=== PATIENT | female | born 1940 | race Caucasian/White ===

== ENCOUNTER → 2017-07-22 | Outpatient (CLI) | payer OTHER, MEDICARE | LOC: LABMALL 10:44 | DX: R41.3 Other amnesia (principal) ==

== ENCOUNTER 2018-03-19 15:10 | Emergency (ER) | payer OTHER, MEDICARE ==
[~2018-03-19] VITALS: Ht 152.4 cm; Wt 46.3 kg
[2018-03-19] MEDS ORDERED: VALACYCLOVIR1000 MG PO (16:12)
[2018-03-19] MEDS ORDERED: TRAMADOL 50 MG50 MG PO (16:12)
[2018-03-19 17:53] VITALS: BP 124/72
== END 2018-03-19 16:00 | disposition home or self-care (01) ==
LOC: ER 15:10
DX: B02.9 Zoster without complications (principal); Z88.1 Allergy status to other antibiotic agents; Z88.2 Allergy status to sulfonamides; Z88.8 Allergy status to other drugs, medicaments and biological substances

== ENCOUNTER → 2019-07-06 | Outpatient (CLI) | payer OTHER, MEDICARE ==
[~2019-07-06] MED LIST: TRAMADOL 50 MG50 MG PO; VALACYCLOVIR1000 MG PO
== END ==
LOC: ULTRA 08:09
DX: D26.1 Other benign neoplasm of corpus uteri (principal); K80.80 Other cholelithiasis without obstruction

== ENCOUNTER → 2019-07-11 | Outpatient (CLI) | payer OTHER, MEDICARE | LOC: RAD 09:58 | DX: K59.00 Constipation, unspecified (principal); R13.10 Dysphagia, unspecified; Z88.8 Allergy status to other drugs, medicaments and biological substances; Z88.0 Allergy status to penicillin; Z88.2 Allergy status to sulfonamides ==

== ENCOUNTER → 2019-11-02 | Outpatient (CLI) | payer OTHER, MEDICARE | LOC: RAD 10:29 | DX: Z12.31 Encounter for screening mammogram for malignant neoplasm of breast (principal) ==

== ENCOUNTER → 2020-02-21 | Outpatient (CLI) | payer OTHER, MEDICARE | LOC: SJCVC 09:47 | DX: R94.31 Abnormal electrocardiogram [ECG] [EKG] (principal); I10 Essential (primary) hypertension; E78.00 Pure hypercholesterolemia, unspecified; M54.30 Sciatica, unspecified side; Z79.899 Other long term (current) drug therapy ==

== ENCOUNTER → 2020-03-08 | Outpatient (CLI) | payer OTHER, MEDICARE ==
[~2020-03-08] VITALS: Ht 152.4 cm; Wt 46.2 kg
[~2020-03-08] MED LIST changes: +AMITRIPTYLINE H10 M3 PO; +AMITRIPTYLINE H25 M3 PO; +LO-DOSE ASPIRIN81 M1 PO; +NORVASC 2.5 MG2.5 M1 PO; +ROSUVASTATIN CA10 MG PO; +TIZANIDINE HCL 22 M1 PO
[2020-03-08 13:46] VITALS: BP 147/69
--- NOTE | 2020-03-08 13:49 | NUR ---
Pain Clinic Assessment: 1. History of Osteoarthritis: BACK History of Rheumatoid Arthritis: Not Applicable 2. Height: 5 ft. 0 in. 152.4 cm. Weight: 101.8 lb. oz. 46.176 kg. Patient's BMI: 19.9 3. Vital Signs: BP: 147/69 Pulse: 80 Resp: 14 Temp: 02 Sat: 98 ECG Mon: 4. Pain Intensity: 7 5. Fall Risk: Dizziness: N Needs help standing or walking: N Fallen in the last 3 months: N Fall risk comments: 6. Patient on Blood Thinner: None 7. History of Hypertension: Y 8. Opioid Therapy greater than 6 weeks: N Opiate Contract Signed: 9. Risk Assessment Tool Provided: 10. Functional Assessment Tool: 11. Recreational Drug Use: Never Drug Type: Tobacco Use: Never Smoker Tobacco Type: Amount or Packs/day: How Many Years: Alcohol Use: Yes Frequency: Weekly Quant: 2
--- NOTE | 2020-03-25 02:56 | HPC ---
[facility] [place] [address] PAIN MANAGEMENT CONSULTATION Name: ELLYN SCHOFIELD Room #: REG [facility] SwethaArashRudyArash#: [id number] Admission: 03/08/20 Attend Phys: Jessica Baxter MD Discharge: Date of : 44 Report #: [id number] THIS REPORT FOR: cc: Joon Kenny MD, Rene P. MD Brown, N. Wayne MD ~ CC: Jessica Kenny MD DATE OF SERVICE: 03/08/2020 CHIEF COMPLAINT: Pain in the sciatic nerve with pain down the leg. HISTORY: The patient is a 79-year-old female who has been referred to the Pain Clinic because of pain, which she is experiencing. She has been experiencing pain, which is radiating down into her left leg. She has tried ibuprofen to help with the pain without significant improvement. She has a history of a Medtronic stimulator to assist with bladder incontinence and pain. She has been considering moving. She has been moving furniture in her house. Feels that this may have exacerbated her discomfort. Rates it as a 4/10. Pain has awaken her from sleep. Notes an aching discomfort. There is a burning and throbbing sensation. Pain is exacerbated when she is walking. Improves when she is resting. Pain radiates down to the level of the knee, which can be quite severe and disabling. ALLERGIES: DARVOCET, SULFA, AND BENADRYL. PAST MEDICAL HISTORY: Essential hypertension, hypercholesterolemia, urinary incontinence, sciatic nerve pain, osteopenia, seasonal allergies, interstitial cystitis, and Raynaud's syndrome. PAST SURGICAL HISTORY: Eye surgery, facelift, urethral sling. CURRENT MEDICATIONS: Aspirin 81 mg, rosuvastatin 10 mg daily, tizanidine 2 mg, amlodipine 5 mg b.i.d., and amitriptyline 10 mg. REVIEW OF SYSTEMS: Generally good health, fatigue, ringing in the ears, chronic sinus problems, numbness and tingling sensation, memory loss, and confusion. LABORATORY DATA: No new laboratory values are available at the time of interview regarding sciatic pain. PAIN CLINIC ASSESSMENT/PQRS: 1. The patient does have some complaint of back pain. She is not being treated for rheumatoid arthritis. [place] [id number] PAIN MANAGEMENT CONSULTATION Name: CHANDUELLYN P [id number] Admission: 03/08/20 Attend Phys: Jessica Baxter MD Discharge: Date of : 44 Report #: [id number] 2. Height is 5 feet 0, weight 101 pounds, and BMI is 19. 3. Vital Signs: Blood pressure 147/69, heart rate 80, respiratory rate 14, room air saturation 98%. 4. Pain intensity, 7/10, 4/10 at this juncture. 5. Fall history: The patient has not fallen in the last 3 months. 6. Blood thinner. The patient is not on a blood thinning medication. 7. Hypertension. The patient is being treated for hypertension. 8. Opioids. The patient is not on opioid regimen. 9. Risk assessment tool, low for opioid use. 10. Functional assessment tool, . 11. Recreational drugs: The patient denies. 12. Tobacco: The patient has never smoked. 13. Alcohol: The patient drinks about 2 alcoholic beverages weekly. PHYSICAL EXAMINATION: GENERAL: The patient is a well-developed, well-nourished white female. Appears her stated age. She is alert and oriented x 3. Her affect is appropriate. Speech is fluent. HEENT: Normocephalic, atraumatic. Extraocular eye muscles intact. Sclerae nonicteric. Mucous membranes are moist. NECK: Without adenopathy or JVD. HEART: Regular. ABDOMEN: Nontender. EXTREMITIES: Upper extremity muscle strength is judged to be 5-/5 for the major muscle groups in the upper extremity. Lower extremity, the patient has pain and discomfort in the lower extremities and rates it as 4-5 depending on activity. Notes that there is pain that radiates down into her left sciatic area with numbness and tingling. IMPRESSION: 1. Left sciatic nerve irritation with pain and discomfort in the L5-S1 dermatomal distribution with pain radiating down to the posterior portion of her knee on the left side. 2. Essential hypertension. 3. Hypercholesterolemia. 4. Urinary incontinence. 5. Osteopenia. 6. Seasonal allergies. 7. Interstitial cystitis. 8. Raynaud's syndrome. RECOMMENDATIONS: We discussed treatment options with the patient. Risks and benefits of an epidural steroid injection were discussed. A model was used to indicate the area of probable pathology. The patient states she understands. She has a get together scheduled today. Because of get together, she would like to return for the injection on another day. She will follow up in the near [facility] [address] [place] [address] PAIN MANAGEMENT CONSULTATION Name: ELLYN SCHOFIELD Room #: REG [facility] Robina#: [id number] Admission: 03/08/20 Attend Phys: Jessica Baxter MD Discharge: Date of : 44 Report #: [id number] future. We will then undergo an epidural steroid injection. We discussed the risks and benefits of an epidural steroid injection, which could include infection, worsening of pain, no improvement in pain, nerve damage, bleeding. We also talked about the caveat of the COVID-19 pandemic. We explained that sometimes the patients can have a lowered immunity response as a result of steroid use. She is aware. Her pain is quite problematic. She would like to proceed. We would like to thank you for letting us participate in her care. When she returns, we will then proceed with an epidural steroid injection to help control and improve her pain. <ELECTRONICALLY SIGNED> By: Jessica Baxter MD 03/25/20 [id number] Jessica Baxter MD /nt
== END ==
LOC: PAIN 06:51
PROVIDERS: ATTEND Anesthesiology Pain Medicine
DX: M54.32 Sciatica, left side (principal); I10 Essential (primary) hypertension; E78.00 Pure hypercholesterolemia, unspecified; M85.80 Other specified disorders of bone density and structure, unspecified site; R39.81 Functional urinary incontinence; J30.2 Other seasonal allergic rhinitis; N30.10 Interstitial cystitis (chronic) without hematuria; I73.00 Raynaud's syndrome without gangrene; Z88.8 Allergy status to other drugs, medicaments and biological substances; Z79.899 Other long term (current) drug therapy

== ENCOUNTER → 2020-03-13 | Outpatient (CLI) | payer OTHER, MEDICARE ==
[~2020-03-13] VITALS: Ht 152.4 cm; Wt 46.4 kg
[2020-03-13 11:08] VITALS: BP 123/82
--- NOTE | 2020-03-13 11:21 | NUR ---
Pain Clinic Assessment: 1. History of Osteoarthritis: BACK History of Rheumatoid Arthritis: Not Applicable 2. Height: 5 ft. 0 in. 152.4 cm. Weight: 102.2 lb. oz. 46.357 kg. Patient's BMI: 20.0 3. Vital Signs: BP: 123/82 Pulse: 80 Resp: 14 Temp: 02 Sat: 98 ECG Mon: 4. Pain Intensity: 7 5. Fall Risk: Dizziness: N Needs help standing or walking: N Fallen in the last 3 months: N Fall risk comments: 6. Patient on Blood Thinner: None 7. History of Hypertension: Y 8. Opioid Therapy greater than 6 weeks: N Opiate Contract Signed: 9. Risk Assessment Tool Provided: 2-LOW RISK 10. Functional Assessment Tool: 11. Recreational Drug Use: Never Drug Type: Tobacco Use: Never Smoker Tobacco Type: Amount or Packs/day: How Many Years: Alcohol Use: Yes Frequency: Quant:
--- NOTE | 2020-03-26 15:16 | HPC ---
[facility] [place] [address] PAIN MANAGEMENT CONSULTATION Name: ELLYN SCHOFIELD Room #: REG [facility]#: [id number] Admission: 03/13/20 Attend Phys: Jessica Baxter MD Discharge: Date of : 44 Report #: [id number] THIS REPORT FOR: cc: Joon Kenny MD, Rene P. MD Brown, N. Wayne MD ~ CC: Jessica Kenny DATE OF SERVICE: 03/13/2020 PRIMARY CARE PHYSICIAN: Joon Kenny MD CHIEF COMPLAINT: Here for an epidural steroid injection. HISTORY: The patient is a 79-year-old female who has been seen in the pain clinic prior. She suffers from lumbar radiculopathy. She has been experiencing pain that is radiating down the lower portion of her back and into her left leg. She has tried conservative treatment. The pain continues to be problematic. She has returned today for an epidural steroid injection. ALLERGIES: DARVOCET, SULFA, BENADRYL. PAIN CLINIC ASSESSMENT AND PQRS: 1. The patient does have some complaints of back pain. She is not being treated for rheumatoid arthritis. 2. Weight 102 pounds, BMI 20. 3. Vital signs: Blood pressure 123/82, pulse 80, respiratory rate 14, room air saturation 98%. 4. Pain intensity 7/10. 5. Fall history: The patient has not fallen in the last 3 months. 6. Blood thinner. The patient is not on a blood thinning medication. 7. Hypertension. The patient is being treated for hypertension. 8. Opioid therapy. The patient is not on opioids on a regular basis. 9. Risk assessment tool, low for opioid use. 10. Functional assessment tool . 11. Recreational drug use. The patient denies. 12. Tobacco: The patient has never smoked. 13. Alcohol. The patient denies frequent use of alcoholic beverages. PHYSICAL EXAMINATION: GENERAL: The patient is a well-developed, well-nourished white female. Appears her stated age. She is alert and oriented x 3. Her affect is appropriate. Speech is fluent. HEENT: Normocephalic, atraumatic. Extraocular eye muscles intact. Sclerae nonicteric. Mucous membranes are moist. [address] [address] PAIN MANAGEMENT CONSULTATION Name: CHANDUELLYN P Room #: REG [facility] Chaitanya#: [id number] Admission: 03/13/20 Attend Phys: Jessica Baxter MD Discharge: Date of : 44 Report #: [id number] NECK: Without adenopathy or JVD. HEART: Regular rate. ABDOMEN: Nontender. EXTREMITIES: Upper extremity muscle strength judged to be 5-/5 for the major muscle groups in the upper extremity. Lower extremity, the patient has pain and discomfort with pain in the lower extremity and rates it as a 4-5 depending on her activity. The patient has pain that radiates down into the L5-S1 dermatomal distribution in the area of the sciatic nerve on the left with numbness and tingling. IMPRESSION: 1. Lumbar radiculopathy at L5-S1 on the left side. 2. Essential hypertension. 3. Hypercholesterolemia. 4. Urinary incontinence. 5. Osteopenia. 6. Seasonal allergies. 7. Interstitial cystitis. 8. Raynaud's syndrome. 9. Medtronic stimulator for incontinence in the bladder. RECOMMENDATIONS: We discussed treatment options with the patient. Risks and benefits of an epidural steroid injection were explained. Possible complications of the procedure, which could include but are not limited to infection, worsening pain, nerve pain, nerve damage were all discussed. The patient elects to proceed. PROCEDURE NOTE: The patient was taken to the procedure area. She was then assisted in getting on the examination table. Her back was sterilely prepped with a Betadine solution at the L5-S1 area. A 0.25% bupivacaine was infiltrated. A 17-gauge Tuohy with loss of resistance technique at the L5-S1 area was then used to gain access. There was no CSF, heme or paresthesia. Total of 80 mg Depo-Medrol, 40 mg triamcinolone and 2 mL of 0.25% bupivacaine was injected. The patient tolerated the procedure well. There were no complications. She remained in the Pain Clinic for an appropriate amount of time. We would like to thank you for letting us participate in her care. We hope she continues to improve. <ELECTRONICALLY SIGNED> By: Jessica Baxter MD 03/26/20 [id number] Jessica Baxter MD /YOSELIN
== END | disposition home or self-care (01) ==
LOC: PAIN 06:46
PROVIDERS: ATTEND Anesthesiology Pain Medicine
DX: M54.16 Radiculopathy, lumbar region (principal); G89.29 Other chronic pain; Z79.899 Other long term (current) drug therapy; Z79.82 Long term (current) use of aspirin

== ENCOUNTER → 2020-05-10 | Outpatient (CLI) | payer OTHER, MEDICARE ==
[~2020-05-10] VITALS: Ht 152.4 cm; Wt 47.5 kg
[2020-05-10 08:36] VITALS: BP 115/57
--- NOTE | 2020-05-10 08:44 | NUR ---
Pain Clinic Assessment: 1. History of Osteoarthritis: BACK History of Rheumatoid Arthritis: Not Applicable 2. Height: 5 ft. 0 in. 152.4 cm. Weight: 104.8 lb. oz. 47.537 kg. Patient's BMI: 20.5 3. Vital Signs: BP: 115/57 Pulse: 77 Resp: 14 Temp: 02 Sat: 100 ECG Mon: 4. Pain Intensity: 5 5. Fall Risk: Dizziness: N Needs help standing or walking: N Fallen in the last 3 months: N Fall risk comments: 6. Patient on Blood Thinner: None 7. History of Hypertension: Y 8. Opioid Therapy greater than 6 weeks: N Opiate Contract Signed: 9. Risk Assessment Tool Provided: 2-LOW RISK 10. Functional Assessment Tool: 11. Recreational Drug Use: Never Drug Type: Tobacco Use: Never Smoker Tobacco Type: Amount or Packs/day: How Many Years: Alcohol Use: Yes Frequency: Weekly Quant: TWICE
== END ==
LOC: PAIN 07:07
PROVIDERS: ATTEND Anesthesiology Pain Medicine
DX: M54.16 Radiculopathy, lumbar region (principal); G89.29 Other chronic pain; Z98.890 Other specified postprocedural states; Z79.899 Other long term (current) drug therapy; Z88.2 Allergy status to sulfonamides; Z88.8 Allergy status to other drugs, medicaments and biological substances

== ENCOUNTER → 2020-08-02 | Outpatient (CLI) | payer OTHER, MEDICARE | LOC: LAB 08:20 | PROVIDERS: ATTEND Family Medicine | DX: Z20.828 Contact with and (suspected) exposure to other viral communicable diseases (principal) ==

== ENCOUNTER → 2020-08-27 | Outpatient (CLI) | payer OTHER, MEDICARE | LOC: LAB 07:37 | PROVIDERS: ATTEND Family Medicine | DX: Z20.828 Contact with and (suspected) exposure to other viral communicable diseases (principal) ==

== ENCOUNTER → 2020-10-15 | Outpatient (CLI) | payer OTHER, MEDICARE | LOC: SJCVCIMAG 10:21 | PROVIDERS: ATTEND Internal Medicine Cardiovascular Disease | DX: I10 Essential (primary) hypertension (principal); E78.5 Hyperlipidemia, unspecified ==

== ENCOUNTER → 2020-11-05 | Outpatient (CLI) | payer OTHER, MEDICARE | LOC: RAD 08:58 | PROVIDERS: ATTEND Family Medicine | DX: Z12.31 Encounter for screening mammogram for malignant neoplasm of breast (principal) ==

== ENCOUNTER 2020-12-23 21:03 | Emergency (ER) | payer OTHER, MEDICARE ==
[~2020-12-23] VITALS: Ht 152.4 cm; Wt 46.7 kg
[2020-12-23] MEDS ORDERED: ARICEPT10 M1 PO (21:16)
[2020-12-23 21:31] LABS: URINE BILIRUBIN NEGATIVE (Negative); URINE BLOOD NEGATIVE (Negative); URINE CLARITY CLEAR; URINE COLOR YELLOW; URINE GLUCOSE-RANDOM* NEGATIVE (Negative); URINE KETONES NEGATIVE (Negative); URINE LEUKOCYTES-REFLEX NEGATIVE (Negative); URINE NITRITE-REFLEX NEGATIVE (Negative); URINE PROTEIN (DIPSTICK) NEGATIVE (Negative); URINE UROBILINOGEN 0.2 E.U./dl (0.2-1.0)
[2020-12-23 21:59] LABS: HEMATOCRIT 39.2 % (37.0-47.0); HEMOGLOBIN 13.1 gm/dL (12.0-15.0); MCHC 33.4 g/dL (28.0-37.0); MCV 92.8 fL (80.0-100.0); RBC 4.22 mil/uL (4.20-5.00); RDW 12.6 % (10.5-14.5)
[2020-12-23 22:07] LABS: CALCIUM 9.1 mg/dL (8.5-10.1); CREATININE 0.5 mg/dL (0.6-1.0); POTASSIUM 3.3 mmol/L (3.5-5.1)
[2020-12-23 23:22] VITALS: BP 159/65
== END 2020-12-23 23:23 | disposition home or self-care (01) ==
LOC: ER 21:03
PROVIDERS: Nurse Practitioner Family
DX: K59.00 Constipation, unspecified (principal); Z79.82 Long term (current) use of aspirin; Z79.899 Other long term (current) drug therapy; Z88.2 Allergy status to sulfonamides; Z88.8 Allergy status to other drugs, medicaments and biological substances

== ENCOUNTER 2020-12-25 15:02 | Emergency (ER) | payer OTHER, MEDICARE ==
[~2020-12-25] VITALS: Ht 172.7 cm; Wt 46.7 kg
[~2020-12-25 15:02] MED LIST changes: +ARICEPT10 M1 PO
[2020-12-25 18:59] VITALS: BP 145/73
== END 2020-12-25 19:00 | disposition home or self-care (01) ==
LOC: ER 15:02
DX: K59.00 Constipation, unspecified (principal); Z79.82 Long term (current) use of aspirin; Z79.899 Other long term (current) drug therapy; Z88.2 Allergy status to sulfonamides; Z88.8 Allergy status to other drugs, medicaments and biological substances

== ENCOUNTER → 2021-07-16 | Outpatient (CLI) | payer OTHER, MEDICARE | LOC: SJCVC 10:33 | PROVIDERS: ATTEND Internal Medicine Cardiovascular Disease | DX: I10 Essential (primary) hypertension (principal); E78.00 Pure hypercholesterolemia, unspecified; R41.3 Other amnesia; B02.9 Zoster without complications; N30.10 Interstitial cystitis (chronic) without hematuria; G62.9 Polyneuropathy, unspecified; Z72.89 Other problems related to lifestyle; Z78.0 Asymptomatic menopausal state; Z79.899 Other long term (current) drug therapy; Z88.1 Allergy status to other antibiotic agents; Z88.8 Allergy status to other drugs, medicaments and biological substances ==

== ENCOUNTER → 2021-11-14 | Outpatient (CLI) | payer OTHER, MEDICARE | LOC: BC 11-07 15:37 | PROVIDERS: ATTEND Family Medicine | DX: Z12.31 Encounter for screening mammogram for malignant neoplasm of breast (principal) ==